=== PATIENT | female | born 1975 | race Caucasian/White ===

== ENCOUNTER 2020-10-17 20:28 | Emergency (ER) | payer MEDICAID ==
[~2020-10-17] VITALS: Ht 170.2 cm; Wt 81.0 kg
[2020-10-18] MEDS ORDERED: KETOROLAC 30MG/ML VIAL IM ONE (01:00)
[2020-10-18 01:06] LABS: EOSINOPHILS % 2.5 % (0.0-5.0); LYMPHOCYTES % 35.8 % (20.0-50.0); MEAN CORPUSCULAR HEMOGLOBIN 30.4 pg (28.0-32.0); MEAN CORPUSCULAR VOLUME 88.9 fL (81.0-99.0); MEAN PLATELET VOLUME 9.3 fl (7.4-10.4); MONOCYTES % 7.8 % (2.0-8.0); NEUTROPHILS % 52.9 % (40.0-76.0); PLATELET 233 x1000/uL (130-400); RED BLOOD CELL COUNT 4.61 mill/uL (4.2-5.4); RED CELL DISTRIBUTION WIDTH 13.6 % (11.6-14.6)
[2020-10-18 01:14] LABS: CHLORIDE 110 mEq/L (98-107)
[2020-10-18 01:43] LABS: CLARITY URINE CLEAR (CLEAR); COLOR URINE YELLOW (YELLOW); KETONES URINE NEGATIVE (NEGATIVE); LEUKOCYTE ESTERASE URINE TRACE (NEGATIVE); NITRITE URINE NEGATIVE (NEGATIVE); OCCULT BLOOD URINE NEGATIVE (NEGATIVE); PH URINE 5.5 (4.5-8.0); PROTEIN URINE NEGATIVE (NEGATIVE); UROBILINOGEN URINE 0.2 E.U./dL (0.2-1.0)
[2020-10-18] MEDS ORDERED: IBUP-2029 MT (03:01)
[2020-10-18 03:11] VITALS: BP 120/75
[2020-10-18] MEDS ORDERED: ACETAMINOPHEN 500MG TABLET PO ONE (03:15)
== END 2020-10-18 03:15 | disposition home or self-care (01) ==
LOC: ER 20:28
DX: R10.31 Right lower quadrant pain (principal); Z90.710 Acquired absence of both cervix and uterus
CPT/HCPCS: 36415; 74176; 80053; 81003; 83690; 85025; 93005; 96372; 99285; J1885

== ENCOUNTER 2022-08-10 19:34 | Inpatient (IN) | payer MEDICAID ==
[~2022-08-10] VITALS: Ht 165.1 cm; Wt 84.7 kg
[~2022-08-10 19:34] MED LIST: IBUP-2029 MT
[2022-08-10] MEDS ORDERED: TENECTEPLASE 50MG/VIAL IV ONE (20:30)
[2022-08-10] MEDS ORDERED: TENECTEPLASE 50MG/VIAL IV NR (20:45)
[2022-08-10] MEDS ORDERED: [UNRECOGNIZED DRUG - REMARK] XX SCH (21:00)
[2022-08-10 21:07] LABS: BASOPHILS % 0.7 % (0.0-2.0); EOSINOPHILS % 1.3 % (0.0-5.0); HEMATOCRIT. 43.5 % (36.0-48.0); HEMOGLOBIN. 14.3 g/dL (12.0-16.0); LYMPHOCYTES % 27.8 % (20.0-50.0); MEAN CORPUSCULAR HEMOGLOBIN 29.5 pg (28.0-32.0); MEAN CORPUSCULAR VOLUME 89.9 fL (81.0-99.0); MEAN PLATELET VOLUME 9.5 fl (7.4-10.4); MONOCYTES % 6.9 % (2.0-8.0); NEUTROPHILS % 63.3 % (40.0-76.0); PLATELET 289 x1000/uL (130-400); RED BLOOD CELL COUNT 4.84 mill/uL (4.2-5.4); RED CELL DISTRIBUTION WIDTH 14.2 % (11.6-14.6)
[2022-08-10 21:16] LABS: CHLORIDE 105 mEq/L (98-107)
[2022-08-10 21:18] LABS: INR 0.9; PROTHROMBIN TIME 9.8 sec (9.6-11.0)
[2022-08-10 22:05] LABS: ETHANOL BLOOD < 10 mg/dL; HDL CHOLESTEROL 69 mg/dL (40-59); LDL CHOLESTEROL 176 mg/dL (5-100); T4 FREE 0.88 ng/dL (0.76-1.46); TOTAL IRON BINDING CAPACITY 528 ug/dL (250-450)
[2022-08-10 22:07] LABS: CLARITY URINE CLEAR (CLEAR); COLOR URINE YELLOW (YELLOW); KETONES URINE NEGATIVE (NEGATIVE); LEUKOCYTE ESTERASE URINE NEGATIVE (NEGATIVE); NITRITE URINE NEGATIVE (NEGATIVE); OCCULT BLOOD URINE NEGATIVE (NEGATIVE); PH URINE 7.5 (4.5-8.0); PROTEIN URINE NEGATIVE (NEGATIVE); SPECIFIC GRAVITY URINE 1.011 (1.005-1.030); UROBILINOGEN URINE 0.2 E.U./dL (0.2-1.0)
[2022-08-10 22:23] LABS: *AMPHETAMINES SCREEN URINE NEGATIVE (NEGATIVE); *BARBITURATES SCREEN URINE NEGATIVE (NEGATIVE); *BENZODIAZEPINES SCREEN URINE NEGATIVE (NEGATIVE); *COCAINE SCREEN URINE NEGATIVE (NEGATIVE); CANNABINOID URINE SCREEN NEGATIVE (NEGATIVE); METHADONE URINE SCREEN NEGATIVE (NEGATIVE); OPIATES URINE SCREEN NEGATIVE (NEGATIVE); PHENCYCLIDINE URINE SCREEN NEGATIVE (NEGATIVE)
[2022-08-10 22:33] LABS: FOLIC ACID (FOLATE) SERUM 12.8 ng/mL (>5.38)
[2022-08-10] MEDS ORDERED: CLONIDINE 0.1MG TABLET PO PRN (22:45)
[2022-08-10] MEDS ORDERED: ACETAMINOPHEN 325MG TABLET PO PRN ×2 (22:45)
[2022-08-10] MEDS ORDERED: ONDANSETRON HCL 4MG/2ML INJ IV PRN (22:45)
[2022-08-10] MEDS ORDERED: LORAZEPAM 0.5MG TABLET PO PRN (22:45)
[2022-08-10] MEDS ORDERED: IPRATROPIUM/ALBUTEROL 0.5-3(2.5)MG/3ML NEB HHN PRN (22:45)
[2022-08-10] MEDS ORDERED: DOCUSATE SODIUM 100MG CAPSULE PO PRN (22:45)
[2022-08-10] MEDS ORDERED: GUAIFENESIN 200MG/10ML SUGAR FREE UDC PO PRN (22:45)
[2022-08-10] MEDS ORDERED: LABETALOL 5MG/ML SYR 20 MG/4 ML SYRINGE IV PRN (23:00)
[2022-08-10] MEDS ORDERED: IOHEXOL-350 100 ML BOTTLE ONE (23:39)
[2022-08-11 05:22] LABS: CREATINE KINASE MB FRACTION 1.6 ng/mL (0.5-3.6)
[2022-08-11 05:28] LABS: BASOPHILS % 0.6 % (0.0-2.0); EOSINOPHILS % 2.2 % (0.0-5.0); HEMATOCRIT. 41.7 % (36.0-48.0); HEMOGLOBIN. 14.1 g/dL (12.0-16.0); LYMPHOCYTES % 34.4 % (20.0-50.0); MEAN CORPUSCULAR HEMOGLOBIN 30.1 pg (28.0-32.0); MEAN CORPUSCULAR VOLUME 88.6 fL (81.0-99.0); MEAN PLATELET VOLUME 9.6 fl (7.4-10.4); MONOCYTES % 7.8 % (2.0-8.0); PLATELET 284 x1000/uL (130-400); RED CELL DISTRIBUTION WIDTH 14.6 % (11.6-14.6)
[2022-08-11 05:40] LABS: CHLORIDE 106 mEq/L (98-107)
[2022-08-11 05:51] LABS: PHOSPHORUS 3.9 mg/dL (2.5-4.9)
[2022-08-11] MEDS ORDERED: ATORVASTATIN CALCIUM 40MG TABLET PO SCH (21:00)
[2022-08-12] MEDS ORDERED: ASPI-1406 MT (09:43)
[2022-08-12] MEDS ORDERED: FAMO-135 MT (09:43)
[2022-08-12] MEDS ORDERED: LIP40 PO (09:43)
[2022-08-12] MEDS ORDERED: ASPIRIN 81MG EC TABLET PO SCH (09:45)
[2022-08-12 10:40] VITALS: BP 106/70
== END 2022-08-12 11:39 | disposition home or self-care (01) | DRG 47 ==
LOC: ER 19:34 → MICUSO 20:50
PROVIDERS: ADMIT Internal Medicine; ATTEND Internal Medicine
DX: G45.9 Transient cerebral ischemic attack, unspecified (principal); E78.5 Hyperlipidemia, unspecified; G51.0 Bell's palsy; I10 Essential (primary) hypertension; R73.03 Prediabetes; R29.703 NIHSS score 3; Z90.710 Acquired absence of both cervix and uterus; Z79.899 Other long term (current) drug therapy; H81.10 Benign paroxysmal vertigo, unspecified ear
CPT/HCPCS: 36415; 70496; 70498; 70551; 80053; 80061; 80305; 80320; 81003; 82550; 82553; 82607; 82746; 83036; 83540; 83550; 83735; 84100; 84145; 84439; 84443; 84484; 85025; 99285; J2997; Q9967; G0480